=== PATIENT | male | born 1965 | race Caucasian/White ===

== ENCOUNTER 2018-09-29 07:37 | Day surgery (SDC) | payer BC, OTHER ==
[2018-09-26 13:39] VITALS: BMI 35.5
[2018-09-29 09:28] VITALS: TEMP 98.1
[2018-09-29 10:28] VITALS: BP 100/65; PULSE 71
--- NOTE | 2018-09-30 17:00 | PATH ---
Surgical Pathology Report Patient Name: JUAN JOHNSON [facility]. Rec. #: [id number] /Age/Gender: 1965 (Age: 53) / M Account: [id number] Location: [facility]-ENDOSCOPY Taken: 09/29/2018 Received: 09/29/2018 Reported: 09/30/2018 Physicians: Jose Ware M.D. Specimen(s) Received A: RECTAL POLYP B: BX CECAL POLYP C: POLYP SIGMOID Clinical History Polyp surveillance Postoperative diagnosis: Colon polyps Final Diagnosis A. RECTUM, POLYP, BIOPSY: HYPERPLASTIC POLYP. B. CECUM, POLYP, BIOPSY: POLYPOID COLONIC MUCOSA WITH PROMINENT LYMPHOID AGGREGATE. C. SIGMOID COLON, POLYP, BIOPSY: HYPERPLASTIC POLYP. Electronically Signed Cindy Wilkins M.D. Gross Description A. Received in formalin, labeled "biopsy rectal polyp" are 2 hernandez, irregular portions of soft tissue measuring 0.2 and 0.3 cm. in greatest dimension. The specimens are submitted in toto in one cassette. B. Received in formalin, labeled "biopsy cecal polyp" are 2 hernandez, irregular portions of soft tissue measuring 0.2 and 0.4 cm. in greatest dimension. The specimens are submitted in toto in one cassette. C. Received in formalin, labeled "biopsy sigmoid polyp" are 2 hernandez, irregular portions of soft tissue measuring 0.1 and 0.4 cm. in greatest dimension. The specimens are submitted in toto in one cassette. /09/29/201809/29/2018
== END 2018-09-29 10:28 | disposition home or self-care (01) ==
LOC: JASU-ENDO 07:37
PROVIDERS: ATTEND Internal Medicine Gastroenterology
PROC: 0DBN8ZX Excision of Sigmoid Colon, Via Natural or Artificial Opening Endoscopic, Diagnostic (ICD-10-PCS; 2018-09-29)
PROC: 0DBP8ZX Excision of Rectum, Via Natural or Artificial Opening Endoscopic, Diagnostic (ICD-10-PCS; 2018-09-29)
PROC: 0DBH8ZX Excision of Cecum, Via Natural or Artificial Opening Endoscopic, Diagnostic (ICD-10-PCS; principal; 2018-09-29 08:45)
DX: Z12.11 Encounter for screening for malignant neoplasm of colon (principal); Z86.010 Personal history of colon polyps; K62.1 Rectal polyp; K64.8 Other hemorrhoids; D12.0 Benign neoplasm of cecum; D12.5 Benign neoplasm of sigmoid colon
CPT/HCPCS: 88305-TC

== ENCOUNTER 2022-02-27 08:45 | Emergency (ER) | payer BC, OTHER ==
[2022-02-27 08:49] VITALS: BMI 33.2
[2022-02-27] MEDS ORDERED: BEBTELOVIMAB (EUA) 175 MG/2 ML VIAL IVPUSH ONE (09:10)
[2022-02-27 11:35] VITALS: BP 143/78; PULSE 87; TEMP 98.2
== END 2022-02-27 11:44 | disposition home or self-care (01) ==
LOC: JCOVINFU 08:45
PROC: 3E033GC Introduction of Other Therapeutic Substance into Peripheral Vein, Percutaneous Approach (ICD-10-PCS; principal; 2022-02-27)
DX: U07.1 COVID-19 (principal); R05.9 Cough, unspecified
CPT/HCPCS: 99284-25; M0222; Q0222